=== PATIENT | female | born 1970 | race Caucasian/White ===

== ENCOUNTER → 2021-02-22 21:39 | Outpatient (CLI) | payer MEDICAID, SELFPAY ==
--- NOTE | 2021-02-23 11:42 | PC.NURSE ---
Notified pt of positive results
== END ==
PROVIDERS: Visit Provider Nurse Practitioner Family
DX: Z11.52 Encounter for screening for COVID-19 (principal); U07.1 COVID-19
CPT/HCPCS: U0003

== ENCOUNTER → 2021-03-03 20:08 | Outpatient (CLI) | payer MEDICAID, SELFPAY | PROVIDERS: Visit Provider Nurse Practitioner Family | DX: Z20.822 Contact with and (suspected) exposure to COVID-19 (principal) | CPT/HCPCS: U0003 ==

== ENCOUNTER 2021-07-05 16:02 | Emergency (ER) | payer MEDICAID, SELFPAY ==
[2021-07-05 16:11] VITALS: PULSE 98; RESP 16; TEMP 36.8; O2SAT 100; BMI 25.7
[2021-07-05 18:04] VITALS: BP 0/0; PULSE 98; RESP 16; TEMP 36.8; O2SAT 100
== END 2021-07-05 18:09 | disposition left against medical advice (07) ==
LOC: UTC 16:14
PROVIDERS: Emergency Provider Nurse Practitioner Family; PCP Family Medicine
DX: Z53.21 Procedure and treatment not carried out due to patient leaving prior to being seen by health care provider (principal); S30.0XXA Contusion of lower back and pelvis, initial encounter